=== PATIENT | female | born 2005 | race African-American/Black ===

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

== ENCOUNTER 2024-08-05 09:37 | Emergency (ER) | payer OTHER ==
[~2024-08-05] VITALS: Ht 175.3 cm; Wt 66.9 kg
[~2024-08-05 09:37] MED LIST changes: +ONDA-282 PO; -ONDA4TAB6 PO
[2024-08-05] MEDS ORDERED: ZITH250T PO (13:59)
[2024-08-05] MEDS ORDERED: VENTAER INH (13:59)
[2024-08-05] MEDS ORDERED: PRED20TA PO (13:59)
[2024-08-05 14:08] VITALS: BP 118/71; TEMP 97.8; O2SAT 98
== END 2024-08-05 14:10 | disposition home or self-care (01) ==
LOC: M ED 09:37
DX: J20.9 Acute bronchitis, unspecified (principal); R06.02 Shortness of breath; D64.9 Anemia, unspecified; Z79.3 Long term (current) use of hormonal contraceptives; Z91.013 Allergy to seafood

== ENCOUNTER 2025-08-27 22:47 | Outpatient (CLI) | payer OTHER ==
[~2025-08-27] VITALS: Ht 172.7 cm; Wt 79.3 kg
[~2025-08-27 22:47] MED LIST changes: -IBUP-1022 PO; +IBUP600T42 PO; +PRED20TA PO; +VENTAER INH; +ZITH250T PO
[2025-08-27 23:00] VITALS: BP 137/84
[2025-08-27 23:18] LABS: KETONE, URINE AUTO RFX NEGATIVE (NEGATIVE); NITRITE, URINE AUTO RFX NEGATIVE (NEGATIVE); RBC, URINE AUTO RFX 0 /HPF (0-3); SQUAM EPITHELIAL CELL UR AURFX 2 /HPF (0-6); WBC, URINE AUTO RFX 2 /HPF (0-3)
[2025-08-27 23:20] LABS: LEUKOCYTE ESTERASE UR AUTO RFX TRACE (NEGATIVE)
[2025-08-28] MEDS: ACETAMINOPHEN 500 MG TAB PO ONE (00:45)
== END 2025-08-28 00:49 | disposition home or self-care (01) ==
LOC: M LDO 22:47
PROVIDERS: ATTEND Specialist
DX: O26.893 Other specified pregnancy related conditions, third trimester (principal); R10.30 Lower abdominal pain, unspecified; M54.50 Low back pain, unspecified; Z3A.32 32 weeks gestation of pregnancy
CPT/HCPCS: 59025; 81001; 87086; G0463